=== PATIENT | male | born 1980 | race Two or more races ===

== ENCOUNTER 2018-11-16 13:13 | Emergency (ER) | payer MEDICAID ==
[~2018-11-16] VITALS: Ht 185.4 cm; Wt 94.3 kg
--- NOTE | 2018-11-16 13:40 | NUR ---
PATIENT WAS MSE BY DR CANCINO IN ROOM 04A.
[2018-11-16] MEDS ORDERED: IBUPROFEN 600 MG TABLET ONE (13:45)
[2018-11-16] MEDS ORDERED: ACETAMINOPHEN ES 500 MG TABLET ONE (13:45)
[2018-11-16] MEDS: IBUPROFEN 600 MG TABLET PO ONE (13:47)
[2018-11-16] MEDS: ACETAMINOPHEN 325 MG TABLET PO ONE (13:47)
[2018-11-16 13:49] VITALS: BP 139/87
== END 2018-11-16 13:50 | disposition home or self-care (01) ==
LOC: ER 13:15
DX: B34.9 Viral infection, unspecified (principal); R51 Headache
CPT/HCPCS: A4663; A9150